=== PATIENT | female | born 1980 | race Caucasian/White ===

== ENCOUNTER 2023-11-12 09:00 | Outpatient (RCR) | payer BC, SELFPAY | END 2023-11-12 09:51 | disposition home or self-care (01) | LOC: HO.PT 09:00 | PROVIDERS: PCP Family Medicine; Visit Provider Obstetrics & Gynecology | DX: M99.05 Segmental and somatic dysfunction of pelvic region (principal); N39.3 Stress incontinence (female) (male) | CPT/HCPCS: 97110; 97112; 97140; 97161 ==